=== PATIENT | female | born 1990 | race Caucasian/White ===

== ENCOUNTER → 2024-08-26 | Outpatient (REF) | payer OTHER | LOC: M PLALAB 11:03 | PROVIDERS: ATTEND Advanced Practice Midwife | DX: Z53.9 Procedure and treatment not carried out, unspecified reason (principal) ==

== ENCOUNTER → 2024-09-05 | Outpatient (CLI) | payer OTHER, SELFPAY ==
[2024-09-05 15:46] LABS: PLATELET COUNT, AUTOMATED 336 10^3/uL (150-450)
[2024-09-05 16:15] LABS: HIV 1&2 SCREEN NEGATIVE (NEGATIVE)
[2024-09-05 16:24] LABS: HEPATITIS C VIRUS ABY INDEX < 0.02 INDEX (<0.8)
[2024-09-05 16:44] LABS: Trichomonas vaginalis (AMP) NOT DETECTED (NEGATIVE)
[2024-09-05 17:07] LABS: GC DNA AMPLIFICATION NEGATIVE (NEGATIVE)
== END ==
LOC: M PLALAB 14:02
PROVIDERS: ATTEND Advanced Practice Midwife
DX: Z34.81 Encounter for supervision of other normal pregnancy, first trimester (principal)

== ENCOUNTER → 2024-11-03 | Outpatient (CLI) | payer OTHER | LOC: M WHC 10:34 | PROVIDERS: ATTEND Advanced Practice Midwife | DX: O26.22 Pregnancy care for patient with recurrent pregnancy loss, second trimester (principal); O09.212 Supervision of pregnancy with history of pre-term labor, second trimester; Z36.87 Encounter for antenatal screening for uncertain dates; Z3A.19 19 weeks gestation of pregnancy ==

== ENCOUNTER → 2024-11-20 | Outpatient (CLI) | payer OTHER | LOC: M PLALAB 09:54 | PROVIDERS: ATTEND Student in an Organized Health Care Education/Training Program | DX: Z34.80 Encounter for supervision of other normal pregnancy, unspecified trimester (principal) ==

== ENCOUNTER → 2025-01-07 | Outpatient (CLI) | payer OTHER ==
[2025-01-07 14:00] LABS: PLATELET COUNT, AUTOMATED 344 10^3/uL (150-450)
[2025-01-07 14:02] LABS: GLUCOSE CHALLENGE TEST 1 HOUR 82 MG/DL (LESS THAN 140)
[2025-01-07 14:37] LABS: HIV 1&2 SCREEN NEGATIVE (NEGATIVE)
[2025-01-07 14:45] LABS: HEPATITIS C VIRUS ABY INDEX < 0.02 INDEX (<0.8)
[2025-01-07 15:46] LABS: GC DNA AMPLIFICATION NEGATIVE (NEGATIVE)
[2025-01-07 15:55] LABS: Trichomonas vaginalis (AMP) NOT DETECTED (NEGATIVE)
== END ==
LOC: M PLALAB 08:54
PROVIDERS: ATTEND Obstetrics & Gynecology
DX: Z34.92 Encounter for supervision of normal pregnancy, unspecified, second trimester (principal)

== ENCOUNTER 2025-02-10 10:45 | Outpatient (RCR) | payer OTHER | END 2025-02-18 | LOC: M PT 10:45 | PROVIDERS: ATTEND Advanced Practice Midwife | DX: M54.30 Sciatica, unspecified side (principal); R10.20 Pelvic and perineal pain unspecified side ==